=== PATIENT | female | born 1980 | race Two or more races ===

== ENCOUNTER 2023-03-31 13:33 | Emergency (ER) | payer MEDICAID ==
[~2023-03-31] VITALS: Ht 175.3 cm; Wt 112.3 kg
[2023-03-31 15:53] VITALS: BP 144/80; PULSE 89; RESP 20; TEMP 98.3; O2SAT 98
== END 2023-03-31 16:47 | disposition home or self-care (01) ==
LOC: ER 13:33
DX: R21 Rash and other nonspecific skin eruption (principal); E66.01 Morbid (severe) obesity due to excess calories; Z68.36 Body mass index [BMI] 36.0-36.9, adult; Z90.49 Acquired absence of other specified parts of digestive tract